=== PATIENT | male | born 1960 | race Caucasian/White ===

== ENCOUNTER 2018-09-18 01:49 | Emergency (ER) | payer OTHER ==
[~2018-09-18] VITALS: Ht 167.6 cm; Wt 61.1 kg
[~2018-09-18 01:49] MED LIST: COLC0.6T6 PO; HYDR-4011 PO; NAPR-985 PO
[2018-09-18 01:58] VITALS: BP 109/68; PULSE 79; RESP 20; Ht 167.6 cm; Wt 61.1 kg
--- NOTE | 2018-09-18 03:09 | ERD ---
ER Documentation Chief Complaint Chief Complaint right foot pain r/t gout x 5 days HPI This is a 57-year-old male who presents here in emergency department with complaints of right foot and ankle pain for about 5 days. Stated that he has history of gout. Denies headache, head injury, loss of consciousness, dizziness, neck pain, neck stiffness, throat pain, difficulty swallowing, difficulty breathing lying flat, shoulder pain, chest pain, back pain, abdominal pain, nausea, vomiting, constipation, diarrhea, urinary symptoms, loss of bowel and bladder control, trauma, injury, falls, difficulty walking due to pain, numbness or tingling sensation, calf pain, recent travel, recent major surgery in the last 3 weeks, calf pain, recent long travel, recent exposure to any illness, recent antibiotic use in the last 3 months, fever, chills, seizures. Past medical history: Surgical history: Social: Denies smoking, use of alcoholic beverages, use of illegal drugs. ROS All systems reviewed and are negative except as per history of present illness. Medications Home Meds Active Scripts Tramadol HCl (Tramadol HCl) 50 Mg Tablet, 50 MG PO Q4 PRN for SEVERE PAIN LEVEL 7-10, #5 TAB Prov:MAC FREY 09/18/18 Prednisone* (Prednisone*) 20 Mg Tab, 40 MG PO DAILY for 4 Days, TAB Prov:MAC FREY F 09/18/18 Omeprazole* (Omeprazole*) 40 Mg Capsule.dr, 40 MG PO DAILY, #30 CAP Prov:MAC FREY 09/18/18 Ibuprofen* (Motrin*) 600 Mg Tab, 600 MG PO Q6H PRN for PAIN AND OR ELEVATED TEMP, #30 TAB Prov:MAC FREY F 09/18/18 Hydrocodone/Acetaminophen ([place] 5-325 Tablet) 1 Each Tablet, 1 TAB PO Q6H PRN for PAIN, #7 TAB Prov:PAUL EDMONDS PA-C 05/26/18 Colchicine* (Colcrys*) 0.6 Mg Tablet, 0.6 MG PO DAILY, #3 TAB Prov:PAUL EDMONDS PA-C 05/26/18 Naproxen* (Naprosyn*) 500 Mg Tablet, 500 MG PO BID PRN for PAIN AND/OR INFLAMMATION, #30 TAB Prov:PAUL EDMONDS PA-C 05/26/18 Allergies Allergies: Coded Allergies: No Known Allergy (Verified , 07/17/11) PMhx/Soc History of Surgery: No Anesthesia Reaction: No Hx Neurological Disorder: No Hx Respiratory Disorders: No Hx Cardiac Disorders: No Hx Psychiatric Problems: No Hx Miscellaneous Medical Probl: No Hx Alcohol Use: Yes (occasionally - beer.) Hx Substance Use: No Hx Tobacco Use: No Smoking Status: Current some day smoker Physical Exam Vitals Physical Exam Const: No acute distress Head: Atraumatic Eyes: Normal Conjunctiva ENT: Normal External Ears, Nose and Mouth. Neck: Full range of motion. No meningismus. Resp: Clear to auscultation bilaterally Cardio: Regular rate and rhythm, no murmurs Abd: Soft, non tender, non distended. Normal bowel sounds Skin: No petechiae or rashes Back: No midline or flank tenderness Ext: No cyanosis, or edema. Right ankle: Has swelling and redness. Has good and full range of motion. Skin is not warm to touch. Right pedal pulses within normal limits. Right toes has good and full range of motion. No signs of direct injury. No deformities. Right knee is unremarkable. Right calf is no tenderness. Left lower extremity is unremarkable. No neurovascular deficit. Ambulatory. Neur: Awake and alert. No neurological deficits. Psych: Normal Mood and Affect Results 24 hrs Current Medications Medications Dose Sig/Franca Start Time Status Last (Trade) Ordered Route PRN Stop Time Admin Dose Reason Admin Colchicine 1.2 mg ONCE ONCE 09/18/18 DC (Colchicine) PO 03:30 09/18/18 03:30 Colchicine 0.6 mg ONCE ONCE 09/18/18 DC (Colchicine) PO 03:30 09/18/18 03:30 1 tab ONCE ONCE 09/18/18 DC Acetaminophen PO 03:30 / 09/18/18 03:30 Hydrocodone Bitart ([place] (5/325)) 1 tab ONCE ONCE 09/18/18 DC Acetaminophen PO 03:30 / 09/18/18 03:31 Hydrocodone Bitart ([place] (10/325)) Prednisone 60 mg ONCE ONCE 09/18/18 DC 09/18/18 (Prednisone) PO 03:30 03:43 09/18/18 03:31 Ibuprofen 600 mg ONCE ONCE 09/18/18 DC 09/18/18 (Motrin) PO 04:00 03:43 09/18/18 04:01 Procedures/MDM Diagnostic tests: Clinical exam. This case was discussed with my supervising physician, Dr. Jose Angel who recommends treatment for gout flare. Treatment: [place]. Prednisone. Motrin. Re-evaluation: Denies ankle pain. Has good and full range of motion of the right ankle. Right pedal pulses within normal limits. Capillary refills to bilateral lower extremities are less than 2 seconds. No neurovascular deficit. Ambulatory with steady gait. No neurological deficits. Differential diagnosis I have low suspicion for septic joint, deep space infection, sepsis, cellulitis, abscess, compartment syndrome, DVT. Final diagnosis: Gout flare. Prescription: Motrin. Prednisone. Follow-up with PCP in the next 24-48 hours. Come back here in the emergency department for any new symptoms or any worsening symptoms. All questions and concerns were answered. Patient and family members verbalized understanding and agreed with plan of care. Hemodynamically stable on discharge. Departure Diagnosis: Primary Impression: Gout flare Condition: Stable Additional Instructions: Follow-up with PCP in the next 24-48 hours. Come back here in the emergency department for any new symptoms or any worsening symptoms. MAC FREY September 18, 2018 03:09
[2018-09-18] MEDS ORDERED: COLCHICINE 0.6 MG TAB PO ONE ×2 (03:30)
[2018-09-18] MEDS ORDERED: HYDROCODONE/APAP (5/325) TAB PO ONE (03:30)
[2018-09-18] MEDS ORDERED: predniSONE 20 MG TAB PO ONE (03:30)
[2018-09-18] MEDS ORDERED: OMEP40CA6 PO (03:42)
[2018-09-18] MEDS ORDERED: IBUP-1542 PO (03:42)
[2018-09-18] MEDS ORDERED: PRED20TA PO (03:42)
[2018-09-18] MEDS ORDERED: TRAM50TA2 PO (03:43)
[2018-09-18] MEDS: HYDROCODONE/APAP (10/325) TAB PO ONE ×2 (03:43→03:52)
[2018-09-18] MEDS ORDERED: IBUPROFEN 600 MG TAB PO ONE (04:00)
== END 2018-09-18 04:00 | disposition home or self-care (01) ==
LOC: FTE 01:49
DX: M10.9 Gout, unspecified (principal); F17.210 Nicotine dependence, cigarettes, uncomplicated
CPT/HCPCS: J7512; Z7610; 99283